=== PATIENT | male | born 1995 | race Caucasian/White ===

== ENCOUNTER 2020-11-20 06:31 | Emergency (ER) | payer BC ==
[2020-11-20] MEDS ORDERED: LORazepam 2 MG/ML SDV IVPUSH ONE (07:06)
--- NOTE | 2020-11-20 07:14 | EDM.PDOC ---
ED HPI GENERAL MEDICAL PROBLEM - General Chief Complaint: General Stated Complaint: BODY TREMORS Time Seen by Provider: 11/20/20 07:07 Source of Information: Reports: Patient, Family (friend) History Limitations: Reports: No Limitations - History of Present Illness INITIAL COMMENTS - FREE TEXT/NARRATIVE: 25-year-old male presents to the ED with a chief complaint of generalized tremors. These have been coming on almost every morning for the last year and a half or more. This morning tremors of lasted much longer than normal which is usually about an hour. States he can hardly hold onto a glass of water first thing in the morning. Has to hang onto objects to walk to get to the bathroom. Patient reports he is using kratom about 30 mg twice daily morning and bedtime for close to 2 years. Occasional associated headaches. Occasional associated nausea without vomiting. No diarrhea. Onset: Other Duration: Chronic, Getting Worse Location: Reports: Generalized Quality: Reports: Other Severity: Severe Improves with: Reports: None Worsens with: Reports: None Context: Reports: Other. Denies: Activity, Exercise, Lifting, Sick Contact, Trauma Associated Symptoms: Reports: Headaches, Nausea/Vomiting. 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 below) - Related Data Allergies Allergy/AdvReac Type Severity Reaction Status Date / Time No Known Allergies Allergy Verified 11/20/20 06:41 Home Meds: Home Meds Propranolol [Inderal] 20 mg PO BID #24 tab 11/20/20 [Rx] clonazePAM [Clonazepam] 1 mg PO DAILY #12 tablet 11/20/20 [Rx] Past Medical History Respiratory History: Reports: Pneumothorax - Past Surgical History Respiratory Surgical History: Reports: Other (See Below) Other Respiratory Surgeries/Procedures: thoracostomy X 3 Social & Family History - Recreational Drug Use Recreational Drug Use: Yes Drug Use in Last 12 Months: Yes Recreational Drug Type: Reports: Other (see below) Other Recreational Drug Type: kratom Recreational Drug Use Frequency: Daily ED ROS GENERAL - Review of Systems Review Of Systems: See Below Constitutional: Reports: Malaise, Weakness, Fatigue, Decreased Appetite. Denies: Fever, Chills, Weight Loss HEENT: Reports: No Symptoms Respiratory: Reports: No Symptoms Cardiovascular: Reports: No Symptoms Endocrine: Reports: No Symptoms GI/Abdominal: Reports: No Symptoms : Reports: No Symptoms Musculoskeletal: Reports: No Symptoms Skin: Reports: No Symptoms Neurological: Reports: No Symptoms Psychiatric: Reports: Other Hematologic/Lymphatic: Reports: No Symptoms Immunologic: Reports: No Symptoms ED EXAM, GENERAL - Physical Exam Exam: See Below Exam Limited By: No Limitations General Appearance: Alert, WD/WN, Mild Distress, Other Eye Exam: Bilateral Eye: Normal Inspection, Nystagmus, PERRL Throat/Mouth: Normal Inspection, Normal Lips, Normal Teeth, Normal Oropharynx, Other (Appreciate any noted darting movement of the tongue.) Head: Atraumatic, Other Neck: Normal Inspection, Supple, Non-Tender, Full Range of Motion. No: Carotid Bruit, Lymphadenopathy (L), Lymphadenopathy (R) Respiratory/Chest: No Respiratory Distress, Lungs Clear, Normal Breath Sounds, No Accessory Muscle Use Cardiovascular: Normal Peripheral Pulses, Regular Rate, Rhythm, No Edema, No Gallop, No JVD, No Murmur, No Rub Peripheral Pulses: 3+: Carotid (L), Carotid (R), Posterior Tibial (L), Posterior Tibial (R), Dorsalis Pedis (L), Dorsalis Pedis (R) GI/Abdominal: Normal Bowel Sounds, Soft, Non-Tender, No Organomegaly, No Abnormal Bruit, No Mass Back Exam: Normal Inspection, Full Range of Motion. No: CVA Tenderness (L), CVA Tenderness (R) Extremities: Normal Inspection, Normal Range of Motion, Non-Tender, No Pedal Edema Neurological: Alert, Oriented, CN II-XII Intact, Normal Cognition, No Motor/Sensory Deficits, Other (Diffuse tremulous nests of all extremities hyperactive reflexes). No: Normal Gait, Normal Reflexes Psychiatric: Normal Affect, Normal Mood Skin Exam: Warm, Dry, Intact, Normal Color, No Rash Course - Vital Signs Last Recorded V/S: Last Vital Signs Temp 36.2 C 11/20/20 06:41 Pulse 91 11/20/20 06:41 Resp 17 11/20/20 06:41 BP 155/85 H 11/20/20 06:41 Pulse Ox 99 11/20/20 06:41 - Orders/Labs/Meds Labs: Laboratory Tests 07/08/21 07/08/21 Range/Units 07:30 07:30 WBC 6.54 (4.23-9.07) K/mm3 RBC 4.46 L (4.63-6.08) M/mm3 Hgb 14.0 (13.7-17.5) gm/dl Hct 39.8 L (40.1-51.0) % MCV 89.2 (79.0-92.2) fl MCH 31.4 (25.7-32.2) pg MCHC 35.2 (32.2-35.5) g/dl RDW Std Deviation 38.9 (35.1-43.9) fL Plt Count 234 (163-337) K/mm3 MPV 11.3 (9.4-12.3) fl Neut % (Auto) 67.9 (34.0-67.9) % Lymph % (Auto) 22.9 (21.8-53.1) % Waller % (Auto) 7.5 (5.3-12.2) % Eos % (Auto) 1.4 (0.8-7.0) Baso % (Auto) 0.3 (0.1-1.2) % Neut # (Auto) 4.44 (1.78-5.38) K/mm3 Lymph # (Auto) 1.50 (1.32-3.57) K/mm3 Waller # (Auto) 0.49 (0.30-0.82) K/mm3 Eos # (Auto) 0.09 (0.04-0.54) K/mm3 Baso # (Auto) 0.02 (0.01-0.08) K/mm3 Sodium 144 (136-145) mEq/L Potassium 3.7 (3.5-5.1) mEq/L Chloride 107 (98-107) mEq/L Carbon Dioxide 28 (21-32) mEq/L Anion Gap 12.7 (5-15) BUN 13 (7-18) mg/dL Creatinine 1.1 (0.7-1.3) mg/dL Est Cr Clr Drug Dosing 91.93 mL/min Estimated GFR (MDRD) > 60 (>60) mL/min BUN/Creatinine Ratio 11.8 L (14-18) Glucose 105 H (70-99) mg/dL Calcium 8.4 L (8.5-10.1) mg/dL Magnesium 1.7 L (1.8-2.4) mg/dL Total Bilirubin 0.2 (0.2-1.0) mg/dL AST 12 L (15-37) U/L ALT 13 L (16-63) U/L Alkaline Phosphatase 74 (46-116) U/L C-Reactive Protein <0.2 (<1.0) mg/dL Total Protein 7.3 (6.4-8.2) g/dl Albumin 4.0 (3.4-5.0) g/dl Globulin 3.3 gm/dL Albumin/Globulin Ratio 1.2 (1-2) Meds: Medications Discontinued Medications Generic Name Dose Route Start Last Admin Trade Name Awaisq PRN Reason Stop Dose Admin Dextrose/Lactated Ringer's 1,000 mls @ 999 mls/hr 11/20/20 07:15 11/20/20 07:44 Dextrose 5%-Lactated Ringers IV 999 mls/hr ASDIRECTED SANTIAGO Administration Lorazepam 1 mg 11/20/20 07:06 11/20/20 07:45 Lorazepam 2 Mg/Ml Sdv IVPUSH 11/20/20 07:07 1 mg ONETIME ONE Administration Metoclopramide HCl 7.5 mg 11/20/20 07:41 11/20/20 07:47 Metoclopramide 10 Mg/2 Ml Sdv IVPUSH 11/20/20 07:42 7.5 mg ONETIME ONE Administration Ondansetron HCl Confirm 11/20/20 07:38 11/20/20 07:44 Ondansetron 4 Mg/2 Ml Sdv Administered 11/20/20 07:39 Not Given Dose 4 mg .ROUTE .STK-MED ONE - Radiology Interpretation Free Text/Narrative:: 25-year-old male presents to the ED with diffuse tremulousness of all extremities. Tremors are almost always present when he awakens in the morning for about an hour and then they seem to clear up. Patient is using kratom twice daily for the last 2 years. Kratom is a known stimulant and can produce hallucinogenic effects. It has a strong affinity for opioid receptors. Current symptoms are secondary to chronic kratom use. There is no treatment or antidote for this illicit drug. It is brought over the Internet. Plan IV D5 Ringer's lactate at open. We will give Ativan 1 mg IV to see if it makes any difference in terms of the tremulousness. Routine labs including serum magnesium to be done. - Re-Assessments/Exams Free Text/Narrative Re-Assessment/Exam: 11/20/20 07:42 patient developed nausea and vomiting prior to receiving IV medications. Will give Reglan 7.5 mg IV 11/20/20 08:36 White count is normal at 6.54. Hemoglobin is 14.0 with he matocrit of 39.8. Platelet count 234,000. Sodium was 144 with a potassium of 3.7. Chloride is 107 with a bicarb of 28. Anion gap is 12.7. BUN is 13 with a creatinine of 1.1 and a GFR greater than 60. Glucose is 105. Calcium 8.4 slightly low. Magnesium slightly low at 1.7. Liver function normal. C- reactive protein less than 0.2 total protein 7.3 with an albumin fraction of 4.0 11/20/20 09:34: Patient is feeling much better and the tremors are gone after the Ativan and a liter of fluid. Patient advised that there is no specific antidote or treatment plan for kratom addiction. He needs to stop this drug before it causes long-term brain damage and damage to his nervous system. He understands this. He states he did go through quite bad withdrawal when he quit for about 10 days before coming up to [place]. He uses it primarily as a stimulant to get him up and going for the day. Plan I am going to place him on propanolol 20 mg a.m. and after supper daily for 12 days to help with tremor and withdrawal symptoms as well as clonazepam 1 mg at bedtime for 12 days to help him get some sleep and relieve restless leg syndrome which he suffered from quite severely when he stopped kratom before. He has no follow-up physician. Advised that he needs to seek one out. Departure - Departure Time of Disposition: 09:22 Disposition: Home, Self-Care 01 Condition: Fair Clinical Impression: Coarse tremors, Adverse effect of drug primarily affecting autonomic nervous system - Discharge Information *PRESCRIPTION DRUG MONITORING PROGRAM REVIEWED*: Not Applicable *COPY OF PRESCRIPTION DRUG MONITORING REPORT IN PATIENT SARA: Not Applicable Prescriptions: clonazePAM [Clonazepam] 1 mg PO DAILY #12 tablet Propranolol [Inderal] 20 mg PO BID #24 tab Instructions: Tremor Referrals: PCP,None [Primary Care Provider] - Forms: ED Department Discharge, ED Return to Work/School Form Additional Instructions: Evaluation in the emergency room this morning in regards to severe coarse tremors that you have been experiencing for period of time but much worse the last few weeks. As you have identified this is secondary to long-term use of kratum which is a drug found in a plant source and works as a stimulant and mild to hallucinogenic. Its long-term effect on the brain is unknown. However I would strongly suggest that you stop using this medication due to potential long-term potential damage to your brain and nervous system. Suggest use of propanolol 20 mg twice daily 1 in the morning and 1 after supper in the evening to help with tremors and kratom withdrawal. Second medicine is clonazepam 1 mg about a half an hour before planning to go to bed to facilitate sleep and relieve restless leg syndrome. Sepsis Event Note (ED) - Evaluation Sepsis Screening Result: No Definite Risk - Focused Exam Vital Signs: Vital Signs Temp Pulse Resp BP Pulse Ox 11/20/20 06:41 36.2 C 91 17 155/85 H 99
[2020-11-20] MEDS ORDERED: Dextrose 5%-Lactated Ringers 1,000 ML IV SCH (07:15)
[2020-11-20] MEDS ORDERED: Ondansetron 4 MG/2 ML SDV ONE (07:38)
[2020-11-20] MEDS ORDERED: Metoclopramide 10 MG/2 ML SDV IVPUSH ONE (07:41)
== END 2020-11-20 09:51 | disposition home or self-care (01) ==
LOC: JD.ED 06:31
DX: G25.1 Drug-induced tremor (principal); T44.905A Adverse effect of unspecified drugs primarily affecting the autonomic nervous system, initial encounter
CPT/HCPCS: 36415; 80053; 83735; 85025; 86140; 96374; 96375; 99283; J2060; J2765; J7121